=== PATIENT | female | born 1980 | race Caucasian/White ===

== ENCOUNTER 2021-06-15 19:24 | Emergency (ER) | payer OTHER, SELFPAY ==
[2021-06-15 19:27] VITALS: BP 150/106; PULSE 105; RESP 17; TEMP 36.5; O2SAT 100
--- NOTE | 2021-06-15 19:46 | ED.GENADULT ---
HPI - General Adult General Chief complaint: Headache Stated complaint: Headache, right sided Time Seen by Provider: 06/15/21 19:31 Source: patient, family and RN notes reviewed Mode of arrival: ambulatory History of Present Illness HPI narrative: 41-year-old female with remote history of cluster headaches presented to the emerge department for evaluation of a right-sided intermittent headache. Patient states last Thursday she had what she suspected was a cluster headache due to its similarities to her previous headaches. Patient described a sharp pain on the right side of her face just lateral to her right eye. Patient described it as an ice pick sensation. Patient did have follow-up with her primary care physician and was started on Augmentin due to a suspected sinus or dental infection. Patient is still taking these antibiotics. Patient states that she had not had any significant headaches until 2 AM last night when she had approximately a 15-minute intense pain on the right side. Patient states after 15 minutes improved and eventually resolved. Patient had recurrence of this pain again at 10 AM which was resolved. patient had a third episode just prior to arrival. Patient's previous was approximately 10 years ago and also occurred during the . At that time patient was also having symptoms of confusion and aphasia. Patient did have a full neuro work-up including an MRI and was ultimately diagnosed with cluster headaches. Patient has not had recent neurology follow-up since she has primarily been headache free. Patient denies any prior CVA history. Patient denies any cardiac history. Related Data Home Medications Medication Instructions Recorded Confirmed cetirizine [Zyrtec] 5 mg PO DAILY 06/15/21 metformin 150 mg PO DAILY 06/15/21 Allergies Allergy/AdvReac Type Severity Reaction Status Date / Time No Known Allergies Allergy Verified 06/15/21 20:26 Review of Systems Review of Systems: CONSTITUTIONAL: Denies fever, chills, or sweats. EYES: Denies visual changes, redness, or discharge. ENT: Denies rhinorrhea, congestion, sore throat, or otalgia. CARDIOVASCULAR: Denies chest pain, palpitations, or edema. RESPIRATORY: Denies cough or dyspnea. GASTROINTESTINAL: Denies abdominal pain, nausea, vomiting, or diarrhea. GENITOURINARY: Denies dysuria or hematuria. SKIN: Denies rash or itching. MUSCULOSKELETAL: Denies back pain, joint pain, or myalgia. NEUROLOGIC: Intermittent right-sided headache. Patient denies any associated current speech changes or associated numbness or weakness.. Exam Narrative: APPEARANCE: Well appearing, no pain, no distress, well-nourished. HEAD: normocephalic, atraumatic. EYES: PERRLA/EOMI, conjunctivae clear. NOSE: Normal no drainage EARS:TMS clear with good light reflex. No observed dental infection. THROAT: Pharynx clear, no exudate. NECK: Supple. No adenopathy, no masses. RESPIRATORY: Airway patent, respirations nonlabored. Clear to auscultation bilaterally, no rales, rhonchi, wheezing. CARDIOVASCULAR: Regular rate and rhythm without murmurs rubs or gallops. ABDOMINAL: Soft, nontender, nondistended, normal bowel sounds MUSCULOSKELETAL: Moves all extremities. Strength/ROM intact, No edema, No calf tenderness. NEURO: Alert. Cranial nerves II through XII intact. Good gait. Good coordination. No aphasia. No ataxia. No discoordination. Neurologically intact. Minimal headache at this time. SKIN: Warm, dry. Normal Color Course Course Emergency Course: Headache was improved after 15minutes on high flow oxygen. Patient was still having some residual headache so she was treated with a migraine cocktail. If after the migraine cocktail patient states her headache was completely resolved. Patient was encouraged to have close follow-up with her primary care physician and will also be referred to neurology. Patient was educated on reasons to return to the emergency department. All questions carolin
[2021-06-15] MEDS: diphenhydrAMINE HCl INJ 50 MG/ML VIAL 25 MG IV PUSH (20:20)
[2021-06-15] MEDS: KETOROLAC 15 MG/ML VIAL (*BKC) IV PUSH (20:21)
[2021-06-15] MEDS: PROCHLORPERAZINE EDISYLATE 10 MG/2 ML VIAL IV PUSH (20:22)
[2021-06-15] MEDS: SODIUM CHLORIDE 0.9% IV 500 ML 999 ML IV CONT (20:22)
[2021-06-15 20:26] VITALS: BP 113/67; PULSE 89; RESP 14; O2SAT 100
[2021-06-15 21:38] VITALS: BP 116/73; PULSE 88; RESP 18; O2SAT 100
== END 2021-06-15 21:39 | disposition home or self-care (01) ==
PROVIDERS: Emergency Provider Emergency Medicine; PCP Nurse Practitioner Adult Health
DX: R51.9 Headache, unspecified (principal)
CPT/HCPCS: 96361; 96374; 96375; 99284; J0780; J1200; J1885; J7040

== ENCOUNTER 2024-12-21 09:25 | Outpatient (CLI) | payer OTHER, SELFPAY ==
--- NOTE | ~2024-12-21 | MM_ITS ---
EXAMINATION: MM screening nhan BI w abundio HISTORY: Screening TECHNIQUE: Craniocaudal and mediolateral oblique 3-D tomosynthesis images were obtained and synthetic 2-D images were generated. CAD analysis was submitted and interpreted. COMPARISON: No prior mammogram is available for comparison at this institution. BREAST PARENCHYMAL COMPOSITION: There are scattered areas of fibroglandular density. FINDINGS: There is no evidence of suspicious mass, calcification, or architectural distortion to suggest malignancy. IMPRESSION: 1. No mammographic evidence of malignancy. Recommend routine screening mammography in one year. BI-RADS Category 2: Benign finding(s) Reviewed, dictated and finalized at location [facility]. IMPRESSION: 1. No mammographic evidence of malignancy. Recommend routine screening mammogra phy in one year. BI-RADS Category 2: Benign finding(s)
== END 2024-12-21 09:26 | disposition home or self-care (01) ==
PROVIDERS: PCP Nurse Practitioner; Visit Provider Nurse Practitioner
DX: Z12.31 Encounter for screening mammogram for malignant neoplasm of breast (principal)
CPT/HCPCS: 77063; 77067